=== PATIENT | male | born 1960 | race Two or more races ===

== ENCOUNTER 2018-01-29 08:17 | Day surgery (SDC) | payer OTHER ==
[2018-01-29] MEDS ORDERED: FENTAnyl 50 MCG/ML VIAL (10:36)
[2018-01-29] MEDS ORDERED: LIDOCAINE 2% (SDV) 5 ML INJ (10:36)
[2018-01-29] MEDS ORDERED: PROPOFOL 40 ML (10:36)
== END 2018-01-29 12:20 | disposition home or self-care (01) ==
LOC: GIL 08:17
DX: Z12.11 Encounter for screening for malignant neoplasm of colon (principal); K29.60 Other gastritis without bleeding; K64.8 Other hemorrhoids; D17.5 Benign lipomatous neoplasm of intra-abdominal organs; I10 Essential (primary) hypertension
CPT/HCPCS: 43239; 88305; 88312